=== PATIENT | female | born 1985 | race Caucasian/White ===

== ENCOUNTER 2022-08-31 23:08 | Emergency (ER) | payer OTHER ==
[~2022-08-31 23:08] MED LIST: Iopamidol 300 61% 100 ML VIAL FS ONE
[2022-08-31] MEDS ORDERED: Morphine 4 MG/ML VIAL ONE (23:49)
[2022-08-31] MEDS ORDERED: Ketorolac Tromethamine 30 MG/ML VIAL ONE (23:49)
[2022-08-31] MEDS ORDERED: Ondansetron PF 4 MG/2 ML Vial ONE (23:50)
[2022-09-01 00:16] LABS: #Monocytes 0.4 10x3/uL (0.0-1.1); #Neutrophils 15.8 10x3/uL (1.5-8.4); %Basophils 0.2 % (0.0-2.0); %Eosinophils 0.1 % (0.0-6.0); %Monocytes 2.4 % (0.0-10.0); Hemoglobin 14.4 g/dL (12.0-15.5); Mean Corpuscular HGB CONC 34.3 g/dL (32.0-36.0); Mean Corpuscular Hemoglobin 30.2 pg (27.0-33.0); Mean Corpuscular Volume 88.1 fl (81.6-98.3); Mean Platelet Volume 10.9 fl (7.4-10.4); Platelet Count 406 10x3/uL (150-450); RBC Distribution Width 13.4 % (11.5-14.5); Red Blood Cell (RBC) Count 4.77 10x6/uL (3.90-5.03); White Blood Cell (WBC) Count 17.4 10x3/uL (3.5-10.5)
[2022-09-01 00:22] LABS: BHCG - Serum Negative (NEGATIVE); Pregs Control Background? CLEAR/WHITE (CLR/WHITE); Pregs Control Bar Appear? YES (CONTROL BAR)
[2022-09-01 00:24] LABS: ALT (SGPT) 45 U/L (8-55); AST (SGOT) 31 U/L (5-34); Albumin 4.1 g/dL (3.5-5.0); Alkaline Phosphatase 80 U/L (40-110); Anion Gap 16 mmol/L (10-20); BUN (Urea Nitrogen) 10 mg/dL (7.0-18.7); Bilirubin, Total 0.5 mg/dL (0.2-1.2); Calc. Creatinine Clearance 0 mL/min (70-130); Calcium 8.9 mg/dL (7.8-10.44); Carbon Dioxide 20 mmol/L (22-29); Chloride 108 mmol/L (98-107); Estimated GFR 105; Globulin 3.1 g/dL (2.4-3.5); Glucose 117 mg/dL (70-105); Lipase 18 U/L (8-78); Potassium 4.1 mmol/L (3.5-5.1); Protein, Total 7.2 g/dL (6.0-8.3); Sodium 140 mmol/L (136-145)
[2022-09-01 02:05] LABS: Bilirubin Neg (Negative); Blood, Urine 10 (Negative); Clarity Clear (Clear); Glucose, Urine (Dipstick) Normal (Negative); Ketone, Urine 15 mg/dL (Negative); Leukocyte Negative (Negative); Nitrite Negative (Negative); Protein, Urine (Dipstick) 15 mg/dl (Neg-Trace); Urobilinogen Normal mg/dL (Less than 2)
[2022-09-01 02:36] LABS: Bacteria/HPF None Seen HPF (None Seen); RBC/HPF 0-3 HPF (0-3); Squamous Epithelial 0-3 HPF (0-3); WBC/HPF None Seen HPF (0-3)
[2022-09-01] MEDS ORDERED: diphenhydrAMINE 50 MG/ML VIAL ONE (03:12)
[2022-09-01] MEDS ORDERED: Metoclopramide HCl 10 MG/2 ML VIAL ONE (03:13)
[2022-09-01] MEDS ORDERED: EPINEPHrine 1 MG/ML AMP ONE (18:29)
[2022-09-01] MEDS ORDERED: Bupivacaine PF 0.5% 30 ML VIAL ONE (18:29)
== END 2022-09-01 05:33 | disposition home or self-care (01) ==
LOC: CSHERS 23:08
DX: K43.9 Ventral hernia without obstruction or gangrene (principal); E11.9 Type 2 diabetes mellitus without complications; E03.9 Hypothyroidism, unspecified; F17.210 Nicotine dependence, cigarettes, uncomplicated; Z79.899 Other long term (current) drug therapy
CPT/HCPCS: 71045; 74177; 80053; 81003; 81015; 83690; 84484; 84703; 85025; 87086; A4649; J1200; J1885; J2270; J2405; J2765

== ENCOUNTER → 2022-09-01 | Emergency (ER) | payer OTHER ==
[~2022-09-01] MED LIST changes: +Acetaminophen 325 MG TAB PO PRN; +Bupivacaine PF 0.5% 30 ML VIAL ONE; +Dexamethasone 4 mg/ml Vial ONE; +EPINEPHrine 1 MG/ML AMP ONE; +Fentanyl 250 MCG/5 ML VIAL ONE; +Glycopyrrolate 0.2 MG/ML 5 ML SYRINGE ONE; +HYDROcodone/Acetaminophen 5/325 mg Tablet PO PRN; +HYDROmorphone 0.5 MG/0.5 ML SYRINGE ONE; -Iopamidol 300 61% 100 ML VIAL FS ONE; +Ketorolac Tromethamine 30 MG/ML VIAL ONE; +Metoclopramide HCl 10 MG/2 ML VIAL ONE; +Midazolam HCl 2 mg/2 ml Vial ONE; +Morphine 4 MG/ML VIAL ONE; +Ondansetron PF 4 MG/2 ML Vial ONE; +PHENYLEPHRINE-NS 100 MCG/ML 10 ML SYRINGE ONE; +PROPOFOL 20 ML ONE; +Piperacillin/Tazobactam 4.5 GM VIAL ONE; +SUGAMMADEX SODIUM 200 MG/2 ML VIAL ONE; +Scopolamine 1.5 mg/72 hour Patch TOP SCH; +Succinylcholine 200 MG/10 ml SYRINGE FS ONE; +ePHEDrine Sulfate 50 MG/10 ML VIAL ONE
[2022-09-01 16:35] LABS: #Monocytes 0.7 10x3/uL (0.0-1.1); #Neutrophils 8.2 10x3/uL (1.5-8.4); %Basophils 0.3 % (0.0-2.0); %Eosinophils 0.2 % (0.0-6.0); %Lymphocytes 20.5 % (18.0-47.0); %Monocytes 6.3 % (0.0-10.0); %Neutrophils 72.5 % (40.0-75.0); Hemoglobin 13.9 g/dL (12.0-15.5); Mean Corpuscular HGB CONC 34.8 g/dL (32.0-36.0); Mean Corpuscular Hemoglobin 30.6 pg (27.0-33.0); Mean Corpuscular Volume 87.9 fl (81.6-98.3); Platelet Count 267 10x3/uL (150-450); RBC Distribution Width 13.8 % (11.5-14.5); Red Blood Cell (RBC) Count 4.54 10x6/uL (3.90-5.03); White Blood Cell (WBC) Count 11.3 10x3/uL (3.5-10.5)
[2022-09-01 16:39] LABS: ALT (SGPT) 41 U/L (8-55); AST (SGOT) 44 U/L (5-34); Albumin 3.7 g/dL (3.5-5.0); Alkaline Phosphatase 71 U/L (40-110); Anion Gap 15 mmol/L (10-20); BUN (Urea Nitrogen) 10 mg/dL (7.0-18.7); Bilirubin, Total 0.6 mg/dL (0.2-1.2); Calc. Creatinine Clearance 0 mL/min (70-130); Calcium 8.9 mg/dL (7.8-10.44); Carbon Dioxide 22 mmol/L (22-29); Chloride 107 mmol/L (98-107); Estimated GFR 94; Globulin 3.5 g/dL (2.4-3.5); Glucose 87 mg/dL (70-105); Lipase 21 U/L (8-78); Potassium 4.5 mmol/L (3.5-5.1); Protein, Total 7.2 g/dL (6.0-8.3); Sodium 139 mmol/L (136-145)
== END | disposition home or self-care (01) ==
LOC: CSHERS 15:58
DX: K37 Unspecified appendicitis (principal); F17.290 Nicotine dependence, other tobacco product, uncomplicated; E03.9 Hypothyroidism, unspecified; Z79.899 Other long term (current) drug therapy
CPT/HCPCS: 71045; 74177; 80053; 81003; 81015; 83690; 84484; 84703; 85025; 87086; 88304; 93005; 96361; 96365; 96374; 96375; J0171; J1100; J1170; J1200; J1885; J2250; J2270; J2405; J2543; J2704; J2765; J3010; Q9967; S0020